=== PATIENT | female | born 1985 | race Caucasian/White ===

== ENCOUNTER 2023-03-11 14:31 | Emergency (ER) | payer OTHER ==
[~2023-03-11] VITALS: Ht 175.3 cm; Wt 99.2 kg
[2023-03-11 14:40] VITALS: TEMP 98.3
[2023-03-11] MEDS ORDERED: TETANUS-DIPTH-ACEL PERTUSSIS 0.5ML SYR Tdap IM ONE (19:30)
[2023-03-11] MEDS ORDERED: HYDROcodone-ACET 5/325MG TAB PO ONE (19:30)
[2023-03-11] MEDS ORDERED: ceFAZolin 2 GM/D5W100ml 100 ML IV ONE ×2 (19:30→21:30)
[2023-03-11] MEDS ORDERED: ACETAMINOPHEN 500 MG TAB PO ONE (21:00)
[2023-03-11] MEDS ORDERED: AUG875T PO (21:03)
[2023-03-11] MEDS ORDERED: ACET1CAP14 PO (21:03)
[2023-03-11] MEDS ORDERED: ceFAZolin 1GM/50ML 50 ML IV ONE (21:15)
[2023-03-11] MEDS ORDERED: LIDOCAINE 1% HCL (LOCAL ANESTH.) INJ 20ML MDV ID ONE (21:45)
[2023-03-12 00:36] VITALS: BP 111/71; PULSE 80; RESP 14; O2SAT 96
== END 2023-03-12 01:25 | disposition home or self-care (01) ==
LOC: ER 14:31 → EDBD 14:31 → ER 03-12 00:52
DX: S61.411A Laceration without foreign body of right hand, initial encounter (principal); E11.9 Type 2 diabetes mellitus without complications; W54.0XXA Bitten by dog, initial encounter; Y93.89 Activity, other specified; Y92.89 Other specified places as the place of occurrence of the external cause; Y99.8 Other external cause status
CPT/HCPCS: 12001; 73130; 90471; 90715; 96365